=== PATIENT | male | born 1955 | race African-American/Black ===

== ENCOUNTER 2021-05-18 13:57 | Inpatient (IN) | payer OTHER ==
[2021-05-18] MEDS ORDERED: LOPERAMIDE HCL 2 MG CAPSULE PO PRN (15:12)
[2021-05-18] MEDS ORDERED: IBUPROFEN 400 MG TABLET (FP) PO PRN (15:12)
[2021-05-18] MEDS ORDERED: NICOTINE 10 MG CARTRIDGE (INHALER) IH PRN (15:12)
[2021-05-18] MEDS ORDERED: guaiFENesin 200 MG/10 ML 10 ML UNIT-DOSE CUPS PO PRN (15:12)
[2021-05-18] MEDS ORDERED: MAG HYDROX/AL HYDROX/SIMETH 30 ML UNIT-DOSE CUP PO PRN (15:12)
[2021-05-18] MEDS ORDERED: P-EPHED 60MG/TRIPROLIDI 2.5MG TABLET PO PRN (15:12)
[2021-05-18] MEDS ORDERED: MAGNESIUM HYDROX 2400MG/30ML ORAL SUSPENSION 30 ML CUP PO PRN (15:12)
[2021-05-18] MEDS ORDERED: MAGNESIUM CITRATE 300 ML BOTTLE PO PRN (15:12)
[2021-05-18] MEDS ORDERED: ACETAMINOPHEN 325 MG TABLET (FP) PO PRN (15:12)
[2021-05-18 16:01] VITALS: BMI 18.7
[2021-05-18] MEDS: LISINOPRIL 10 MG TABLET PO SCH (18:04)
[2021-05-18] MEDS: hydrOXYzine PAMOATE 25 MG CAPSULE (FP) PO SCH ×2 (18:04→21:29)
[2021-05-18] MEDS ORDERED: TUBERCULIN PPD 5 TU/0.1ML VIAL ID ONE (18:06)
[2021-05-18] MEDS: THIAMINE HCL 100 MG TABLET (FP) PO SCH (21:28)
[2021-05-18] MEDS: MELATONIN 5 MG TABLETS PO SCH (21:28)
[2021-05-19] MEDS: hydrOXYzine PAMOATE 25 MG CAPSULE (FP) PO SCH ×5 (06:31→21:30)
[2021-05-19] MEDS: PRENATAL VITAMINS W/ FOLIC ACID TABLET (FP) PO SCH (10:05)
[2021-05-19] MEDS: NICOTINE 7 MG/24 HOURS TOPICAL PATCH TD SCH (10:05)
[2021-05-19] MEDS: LISINOPRIL 10 MG TABLET PO SCH (10:07)
[2021-05-19] MEDS: DOLUTEGRAVIR SODIUM 50 MG TABLET (NON-FORMULARY) PO SCH (10:22)
[2021-05-19] MEDS: EMTRICITABINE/TENOFOV ALAFENAM (DESCOVY) TABLET PO SCH (10:23)
[2021-05-19] MEDS: valACYclovir HCL 500 MG TABLET (FP) PO SCH (10:23)
[2021-05-19] MEDS: SERTRALINE HCL 50 MG TABLET (FP) PO SCH (10:24)
[2021-05-19 10:37] LABS: HEMATOCRIT 32.7 % (35.4-49); HEMOGLOBIN 10.7 GM/dL (11.7-16.9); MCH 29.4 pg (25.7-33.7); MCHC 32.7 g/dl (32.0-35.9); MEAN CELL VOLUME 89.8 fl (80-96); MEAN PLT VOLUME 9.3 fl (7.5-11.1); PLATELET COUNT 181 10^3/uL (134-434); RBC 3.64 M/mm3 (4.00-5.60); RDW 13.9 % (11.9-15.9); WHITE BLOOD COUNT 5.9 K/mm3 (4.0-10.0)
[2021-05-19 10:41] LABS: ALBUMIN 2.8 g/dl (3.4-5.0); BLOOD UREA NITROGEN 20.4 mg/dL (7-18)
[2021-05-19 10:43] LABS: CREATININE 1.8 mg/dL (0.55-1.3)
[2021-05-19 10:45] LABS: BILIRUBIN,TOTAL 0.2 mg/dL (0.2-1)
[2021-05-19 10:47] LABS: TOT PROT 7.3 g/dl (6.4-8.2)
[2021-05-19] MEDS ORDERED: PNEUMOC 13-VAL CONJ-DIP CRM/PF 0.5 ML DISP.SYRIN IM ONE (12:00)
[2021-05-19 16:08] LABS: SARS-CoV-2 NAA Not Detected (Not Detected)
[2021-05-19 19:22] LABS: EPI CELLS 7 /uL (0-25.1); HYALINE CASTS 6 /uL (0-3.1); PH,URINE 5.5 (5.0-8.0); URINE APPEARANCE CLEAR; URINE BACTERIA 7007 /uL (0-1359); URINE BILIRUBIN NEGATIVE (NEGATIVE); URINE COLOR YELLOW; URINE GLUCOSE (UA) NEGATIVE (NEGATIVE); URINE KETONE TRACE (NEGATIVE); URINE LEUK ESTERASE 2+ (NEGATIVE); URINE NITRITE NEGATIVE (NEGATIVE); URINE PROTEIN 2+ (NEGATIVE); URINE RBC 4 /uL (0-23.9); URINE UROBILINOGEN 0.2 mg/dL (0.2-1.0); URINE WBC 530 /uL (0-25.8)
[2021-05-19] MEDS: THIAMINE HCL 100 MG TABLET (FP) PO SCH (21:30)
[2021-05-19] MEDS: MELATONIN 5 MG TABLETS PO SCH (21:30)
[2021-05-20] MEDS: hydrOXYzine PAMOATE 25 MG CAPSULE (FP) PO SCH ×2 (05:56→10:18)
[2021-05-20] MEDS: SERTRALINE HCL 50 MG TABLET (FP) PO SCH (10:18)
[2021-05-20] MEDS: LISINOPRIL 10 MG TABLET PO SCH (10:18)
[2021-05-20] MEDS: valACYclovir HCL 500 MG TABLET (FP) PO SCH (10:18)
[2021-05-20] MEDS: PRENATAL VITAMINS W/ FOLIC ACID TABLET (FP) PO SCH (10:18)
[2021-05-20] MEDS: NICOTINE 7 MG/24 HOURS TOPICAL PATCH TD SCH (10:19)
[2021-05-20] MEDS: DOLUTEGRAVIR SODIUM 50 MG TABLET (NON-FORMULARY) PO SCH (10:19)
[2021-05-20] MEDS: EMTRICITABINE/TENOFOV ALAFENAM (DESCOVY) TABLET PO SCH (10:19)
[2021-05-20] MEDS ORDERED: hydrOXYzine PAMOATE 25 MG CAPSULE (FP) PO PRN (12:18)
[2021-05-20] MEDS: MELATONIN 5 MG TABLETS PO SCH (21:15)
[2021-05-20] MEDS: THIAMINE HCL 100 MG TABLET (FP) PO SCH (21:15)
[2021-05-21] MEDS: EMTRICITABINE/TENOFOV ALAFENAM (DESCOVY) TABLET PO SCH (09:56)
[2021-05-21] MEDS: PRENATAL VITAMINS W/ FOLIC ACID TABLET (FP) PO SCH (09:56)
[2021-05-21] MEDS: DOLUTEGRAVIR SODIUM 50 MG TABLET (NON-FORMULARY) PO SCH (09:56)
[2021-05-21] MEDS: valACYclovir HCL 500 MG TABLET (FP) PO SCH (09:57)
[2021-05-21] MEDS: LISINOPRIL 10 MG TABLET PO SCH (09:57)
[2021-05-21] MEDS: NICOTINE 7 MG/24 HOURS TOPICAL PATCH TD SCH (09:57)
[2021-05-21] MEDS: SERTRALINE HCL 50 MG TABLET (FP) PO SCH (09:57)
[2021-05-21] MEDS: MELATONIN 5 MG TABLETS PO SCH (21:50)
[2021-05-21] MEDS: THIAMINE HCL 100 MG TABLET (FP) PO SCH (21:50)
[2021-05-22 08:06] LABS: SARS-CoV-2 NAA Not Detected (Not Detected)
[2021-05-22] MEDS: LISINOPRIL 10 MG TABLET PO SCH (10:27)
[2021-05-22] MEDS: SERTRALINE HCL 50 MG TABLET (FP) PO SCH (10:27)
[2021-05-22] MEDS: PRENATAL VITAMINS W/ FOLIC ACID TABLET (FP) PO SCH (10:27)
[2021-05-22] MEDS: DOLUTEGRAVIR SODIUM 50 MG TABLET (NON-FORMULARY) PO SCH (10:28)
[2021-05-22] MEDS: EMTRICITABINE/TENOFOV ALAFENAM (DESCOVY) TABLET PO SCH (10:28)
[2021-05-22] MEDS: valACYclovir HCL 500 MG TABLET (FP) PO SCH (10:28)
[2021-05-22] MEDS: NICOTINE 7 MG/24 HOURS TOPICAL PATCH TD SCH (10:29)
[2021-05-22] MEDS: SULFAMETHOXAZOLE/TRIMETHOPRIM 800MG/160MG D.S. TABLET PO SCH (21:32)
[2021-05-22] MEDS: MELATONIN 5 MG TABLETS PO SCH (21:32)
[2021-05-22] MEDS: THIAMINE HCL 100 MG TABLET (FP) PO SCH (21:32)
[2021-05-23] MEDS: SERTRALINE HCL 50 MG TABLET (FP) PO SCH (09:50)
[2021-05-23] MEDS: SULFAMETHOXAZOLE/TRIMETHOPRIM 800MG/160MG D.S. TABLET PO SCH ×2 (09:50→21:27)
[2021-05-23] MEDS: LISINOPRIL 10 MG TABLET PO SCH (09:50)
[2021-05-23] MEDS: valACYclovir HCL 500 MG TABLET (FP) PO SCH (09:50)
[2021-05-23] MEDS: PRENATAL VITAMINS W/ FOLIC ACID TABLET (FP) PO SCH (09:50)
[2021-05-23] MEDS: EMTRICITABINE/TENOFOV ALAFENAM (DESCOVY) TABLET PO SCH (09:51)
[2021-05-23] MEDS: DOLUTEGRAVIR SODIUM 50 MG TABLET (NON-FORMULARY) PO SCH (09:51)
[2021-05-23] MEDS: NICOTINE 7 MG/24 HOURS TOPICAL PATCH TD SCH (09:51)
[2021-05-23] MEDS: MELATONIN 5 MG TABLETS PO SCH (21:27)
[2021-05-23] MEDS: THIAMINE HCL 100 MG TABLET (FP) PO SCH (21:27)
[2021-05-24] MEDS: NICOTINE 7 MG/24 HOURS TOPICAL PATCH TD SCH (09:50)
[2021-05-24] MEDS: PRENATAL VITAMINS W/ FOLIC ACID TABLET (FP) PO SCH (09:50)
[2021-05-24] MEDS: valACYclovir HCL 500 MG TABLET (FP) PO SCH (09:51)
[2021-05-24] MEDS: LISINOPRIL 10 MG TABLET PO SCH (09:51)
[2021-05-24] MEDS: SERTRALINE HCL 50 MG TABLET (FP) PO SCH (09:51)
[2021-05-24] MEDS: EMTRICITABINE/TENOFOV ALAFENAM (DESCOVY) TABLET PO SCH (09:51)
[2021-05-24] MEDS: SULFAMETHOXAZOLE/TRIMETHOPRIM 800MG/160MG D.S. TABLET PO SCH ×2 (09:51→21:14)
[2021-05-24] MEDS: DOLUTEGRAVIR SODIUM 50 MG TABLET (NON-FORMULARY) PO SCH (09:51)
[2021-05-24] MEDS: THIAMINE HCL 100 MG TABLET (FP) PO SCH (21:14)
[2021-05-24] MEDS: MELATONIN 5 MG TABLETS PO SCH (21:14)
[2021-05-25] MEDS: DOLUTEGRAVIR SODIUM 50 MG TABLET (NON-FORMULARY) PO SCH (10:14)
[2021-05-25] MEDS: NICOTINE 7 MG/24 HOURS TOPICAL PATCH TD SCH (10:14)
[2021-05-25] MEDS: LISINOPRIL 10 MG TABLET PO SCH (10:15)
[2021-05-25] MEDS: EMTRICITABINE/TENOFOV ALAFENAM (DESCOVY) TABLET PO SCH (10:15)
[2021-05-25] MEDS: SULFAMETHOXAZOLE/TRIMETHOPRIM 800MG/160MG D.S. TABLET PO SCH ×2 (10:15→21:55)
[2021-05-25] MEDS: valACYclovir HCL 500 MG TABLET (FP) PO SCH (10:15)
[2021-05-25] MEDS: PRENATAL VITAMINS W/ FOLIC ACID TABLET (FP) PO SCH (10:15)
[2021-05-25] MEDS: SERTRALINE HCL 50 MG TABLET (FP) PO SCH (10:15)
[2021-05-25] MEDS: THIAMINE HCL 100 MG TABLET (FP) PO SCH (21:55)
[2021-05-25] MEDS: MELATONIN 5 MG TABLETS PO SCH (21:55)
[2021-05-26] MEDS: NICOTINE 7 MG/24 HOURS TOPICAL PATCH TD SCH (10:46)
[2021-05-26] MEDS: SULFAMETHOXAZOLE/TRIMETHOPRIM 800MG/160MG D.S. TABLET PO SCH ×2 (10:47→21:22)
[2021-05-26] MEDS: DOLUTEGRAVIR SODIUM 50 MG TABLET (NON-FORMULARY) PO SCH (10:47)
[2021-05-26] MEDS: EMTRICITABINE/TENOFOV ALAFENAM (DESCOVY) TABLET PO SCH (10:47)
[2021-05-26] MEDS: SERTRALINE HCL 50 MG TABLET (FP) PO SCH (10:48)
[2021-05-26] MEDS: LISINOPRIL 10 MG TABLET PO SCH (10:48)
[2021-05-26] MEDS: valACYclovir HCL 500 MG TABLET (FP) PO SCH (10:48)
[2021-05-26] MEDS: PRENATAL VITAMINS W/ FOLIC ACID TABLET (FP) PO SCH (10:48)
[2021-05-26] MEDS: THIAMINE HCL 100 MG TABLET (FP) PO SCH (21:22)
[2021-05-26] MEDS: MELATONIN 5 MG TABLETS PO SCH (21:22)
[2021-05-27] MEDS: SERTRALINE HCL 50 MG TABLET (FP) PO SCH (10:24)
[2021-05-27] MEDS: valACYclovir HCL 500 MG TABLET (FP) PO SCH (10:24)
[2021-05-27] MEDS: LISINOPRIL 10 MG TABLET PO SCH (10:24)
[2021-05-27] MEDS: PRENATAL VITAMINS W/ FOLIC ACID TABLET (FP) PO SCH (10:24)
[2021-05-27] MEDS: SULFAMETHOXAZOLE/TRIMETHOPRIM 800MG/160MG D.S. TABLET PO SCH ×2 (10:24→21:07)
[2021-05-27] MEDS: NICOTINE 7 MG/24 HOURS TOPICAL PATCH TD SCH (10:25)
[2021-05-27] MEDS: EMTRICITABINE/TENOFOV ALAFENAM (DESCOVY) TABLET PO SCH (10:25)
[2021-05-27] MEDS: DOLUTEGRAVIR SODIUM 50 MG TABLET (NON-FORMULARY) PO SCH (10:25)
[2021-05-27] MEDS: THIAMINE HCL 100 MG TABLET (FP) PO SCH (21:07)
[2021-05-27] MEDS: MELATONIN 5 MG TABLETS PO SCH (21:07)
[2021-05-28] MEDS: SERTRALINE HCL 50 MG TABLET (FP) PO SCH (09:57)
[2021-05-28] MEDS: SULFAMETHOXAZOLE/TRIMETHOPRIM 800MG/160MG D.S. TABLET PO SCH ×2 (09:57→21:24)
[2021-05-28] MEDS: LISINOPRIL 10 MG TABLET PO SCH (09:57)
[2021-05-28] MEDS: PRENATAL VITAMINS W/ FOLIC ACID TABLET (FP) PO SCH (09:57)
[2021-05-28] MEDS: valACYclovir HCL 500 MG TABLET (FP) PO SCH (09:57)
[2021-05-28] MEDS: EMTRICITABINE/TENOFOV ALAFENAM (DESCOVY) TABLET PO SCH (09:58)
[2021-05-28] MEDS: NICOTINE 7 MG/24 HOURS TOPICAL PATCH TD SCH (09:58)
[2021-05-28] MEDS: DOLUTEGRAVIR SODIUM 50 MG TABLET (NON-FORMULARY) PO SCH (09:58)
[2021-05-28] MEDS: MELATONIN 5 MG TABLETS PO SCH (21:24)
[2021-05-28] MEDS: THIAMINE HCL 100 MG TABLET (FP) PO SCH (21:24)
[2021-05-29] MEDS: DOLUTEGRAVIR SODIUM 50 MG TABLET (NON-FORMULARY) PO SCH (09:17)
[2021-05-29] MEDS: EMTRICITABINE/TENOFOV ALAFENAM (DESCOVY) TABLET PO SCH (09:17)
[2021-05-29] MEDS: PRENATAL VITAMINS W/ FOLIC ACID TABLET (FP) PO SCH (09:17)
[2021-05-29] MEDS: SULFAMETHOXAZOLE/TRIMETHOPRIM 800MG/160MG D.S. TABLET PO SCH (09:17)
[2021-05-29] MEDS: NICOTINE 7 MG/24 HOURS TOPICAL PATCH TD SCH (09:17)
[2021-05-29] MEDS: SERTRALINE HCL 50 MG TABLET (FP) PO SCH (09:18)
[2021-05-29] MEDS: valACYclovir HCL 500 MG TABLET (FP) PO SCH (09:18)
[2021-05-29] MEDS: LISINOPRIL 10 MG TABLET PO SCH (09:18)
[2021-05-29] MEDS: MELATONIN 5 MG TABLETS PO SCH (21:32)
[2021-05-29] MEDS: THIAMINE HCL 100 MG TABLET (FP) PO SCH (21:32)
[2021-05-30] MEDS: valACYclovir HCL 500 MG TABLET (FP) PO SCH (09:24)
[2021-05-30] MEDS: PRENATAL VITAMINS W/ FOLIC ACID TABLET (FP) PO SCH (09:24)
[2021-05-30] MEDS: LISINOPRIL 10 MG TABLET PO SCH (09:24)
[2021-05-30] MEDS: SERTRALINE HCL 50 MG TABLET (FP) PO SCH (09:24)
[2021-05-30] MEDS: EMTRICITABINE/TENOFOV ALAFENAM (DESCOVY) TABLET PO SCH (09:24)
[2021-05-30] MEDS: DOLUTEGRAVIR SODIUM 50 MG TABLET (NON-FORMULARY) PO SCH (09:24)
[2021-05-30] MEDS: NICOTINE 7 MG/24 HOURS TOPICAL PATCH TD SCH (09:25)
[2021-05-30] MEDS: THIAMINE HCL 100 MG TABLET (FP) PO SCH (22:16)
[2021-05-30] MEDS: MELATONIN 5 MG TABLETS PO SCH (22:16)
[2021-05-31] MEDS: NICOTINE 7 MG/24 HOURS TOPICAL PATCH TD SCH (10:11)
[2021-05-31] MEDS: PRENATAL VITAMINS W/ FOLIC ACID TABLET (FP) PO SCH (10:12)
[2021-05-31] MEDS: EMTRICITABINE/TENOFOV ALAFENAM (DESCOVY) TABLET PO SCH (10:12)
[2021-05-31] MEDS: valACYclovir HCL 500 MG TABLET (FP) PO SCH (10:12)
[2021-05-31] MEDS: LISINOPRIL 10 MG TABLET PO SCH (10:12)
[2021-05-31] MEDS: SERTRALINE HCL 50 MG TABLET (FP) PO SCH (10:12)
[2021-05-31] MEDS: DOLUTEGRAVIR SODIUM 50 MG TABLET (NON-FORMULARY) PO SCH (10:13)
[2021-05-31] MEDS: THIAMINE HCL 100 MG TABLET (FP) PO SCH (22:19)
[2021-05-31] MEDS: MELATONIN 5 MG TABLETS PO SCH (22:19)
[2021-06-01 07:33] VITALS: BP 129/85; PULSE 75; TEMP 98
[2021-06-01] MEDS: valACYclovir HCL 500 MG TABLET (FP) PO SCH (09:48)
[2021-06-01] MEDS: EMTRICITABINE/TENOFOV ALAFENAM (DESCOVY) TABLET PO SCH (09:49)
[2021-06-01] MEDS: PRENATAL VITAMINS W/ FOLIC ACID TABLET (FP) PO SCH (09:49)
[2021-06-01] MEDS: SERTRALINE HCL 50 MG TABLET (FP) PO SCH (09:49)
[2021-06-01] MEDS: DOLUTEGRAVIR SODIUM 50 MG TABLET (NON-FORMULARY) PO SCH (09:49)
[2021-06-01] MEDS: LISINOPRIL 10 MG TABLET PO SCH (09:50)
[2021-06-01] MEDS: NICOTINE 7 MG/24 HOURS TOPICAL PATCH TD SCH (10:39)
== END 2021-06-01 10:00 | disposition home or self-care (01) | DRG 772 ==
LOC: YASAS 13:57 → Y3W 17:11
PROVIDERS: ADMIT Allergy & Immunology; ATTEND Allergy & Immunology
PROC: HZ42ZZZ Group Counseling for Substance Abuse Treatment, Cognitive-Behavioral (ICD-10-PCS; principal; 2021-05-18)
DX: F14.20 Cocaine dependence, uncomplicated (principal); F17.210 Nicotine dependence, cigarettes, uncomplicated; F32.A Depression, unspecified; F41.9 Anxiety disorder, unspecified; I10 Essential (primary) hypertension; Z21 Asymptomatic human immunodeficiency virus [HIV] infection status; R82.90 Unspecified abnormal findings in urine; Z56.0 Unemployment, unspecified; Z59.00 Homelessness unspecified
CPT/HCPCS: 36415; 80053; 81003; 84132; 85027; 86780; 86803; 87086; 87186; 87811; 90670; C9803; U0003; U0005